=== PATIENT | female | born 1985 | race Caucasian/White ===

== ENCOUNTER 2020-05-24 12:04 | Outpatient (CLI) | payer OTHER | END 2020-05-24 12:07 | disposition home or self-care (01) | LOC: SONOGRAMA 12:04 | PROVIDERS: ATTEND Pathology Anatomic Pathology & Clinical Pathology | DX: N64.4 Mastodynia (principal); R59.9 Enlarged lymph nodes, unspecified; N63.10 Unspecified lump in the right breast, unspecified quadrant; N63.20 Unspecified lump in the left breast, unspecified quadrant ==